=== PATIENT | male | born 1965 | race Caucasian/White ===

== ENCOUNTER 2021-10-23 11:29 | Day surgery (SDC) | payer MEDICAID ==
[~2021-10-23] VITALS: Ht 177.8 cm; Wt 110.4 kg
[~2021-10-23 11:29] MED LIST: SODIUM CHLORIDE 0.9% 1,000 ML ONE
[2021-10-23] MEDS ORDERED: PROPOFOL 1% 20 ML VIAL IVP ONE (11:30)
[2021-10-23] MEDS ORDERED: LABETALOL HCL 5 MG/ML 20 ML VIAL IVP ONE (11:30)
[2021-10-23] MEDS ORDERED: SPIR-37 PO (12:25)
[2021-10-23] MEDS ORDERED: CIPR-278 PO (12:25)
[2021-10-23] MEDS ORDERED: TAMS-13 PO (12:25)
[2021-10-23] MEDS ORDERED: FURO20 PO (12:25)
[2021-10-23] MEDS ORDERED: SODIUM CHLORIDE 0.9% 1,000 ML IV ONE (12:30)
[2021-10-23 12:48] LABS: COVID AG,FIA SOURCE NASOPHARYNGEAL
== END 2021-10-23 15:00 | disposition home or self-care (01) ==
LOC: SURGERY 11:29
PROVIDERS: ATTEND Internal Medicine Gastroenterology
DX: R10.84 Generalized abdominal pain (principal); K76.6 Portal hypertension; K31.89 Other diseases of stomach and duodenum; I85.00 Esophageal varices without bleeding; K70.31 Alcoholic cirrhosis of liver with ascites; C22.8 Malignant neoplasm of liver, primary, unspecified as to type; C18.2 Malignant neoplasm of ascending colon; Z79.899 Other long term (current) drug therapy; Z98.890 Other specified postprocedural states
CPT/HCPCS: 45378; 43235; 87426; C9803; J2704; J3490; J7030